=== PATIENT | female | born 1945 | race Caucasian/White ===

== ENCOUNTER 2021-09-16 09:40 | Day surgery (SDC) | payer OTHER ==
[~2021-09-16] VITALS: Ht 170.2 cm; Wt 91.2 kg
[2021-09-16] MEDS ORDERED: ARTICAINE HCL/EPINEPHRINE 4%/1:200,000 BIT 1.7 ML CARTRIDGE IJ ONE (13:03)
[2021-09-16] MEDS ORDERED: NS IRRIG SOLN 1000 ML IR ONE (13:03)
[2021-09-16] MEDS ORDERED: NS 250 ML BAG IV ONE (13:03)
[2021-09-16 13:43] VITALS: BP_SYST 97
== END 2021-09-16 13:25 | disposition home or self-care (01) ==
LOC: SDS 09:40 → SMU 09:42 → SDS 13:25
PROVIDERS: ATTEND Dentist General Practice
DX: M27.2 Inflammatory conditions of jaws (principal); K05.6 Periodontal disease, unspecified; I10 Essential (primary) hypertension; E78.5 Hyperlipidemia, unspecified; K21.9 Gastro-esophageal reflux disease without esophagitis; E03.9 Hypothyroidism, unspecified; I48.91 Unspecified atrial fibrillation; M79.2 Neuralgia and neuritis, unspecified; Z20.822 Contact with and (suspected) exposure to COVID-19
CPT/HCPCS: 21026; 21215; 21248; 36415; 41826; 70140; 87426; C1713 ×2; J7050

== ENCOUNTER 2021-11-26 07:14 | Day surgery (SDC) | payer OTHER ==
[~2021-11-26] VITALS: Ht 170.2 cm; Wt 91.2 kg
[2021-11-26 11:04] VITALS: BP_SYST 141
[2021-11-26] MEDS ORDERED: NS IRRIG SOLN 1000 ML IR ONE (12:00)
[2021-11-26] MEDS ORDERED: BENZOCAINE 20% GEL 32 GM BOTTLE MM ONE (12:00)
[2021-11-26] MEDS ORDERED: ARTICAINE HCL/EPINEPHRINE 4%/1:200,000 BIT 1.7 ML CARTRIDGE IJ ONE (12:00)
[2021-11-26] MEDS ORDERED: NS 100 ML BAG ONE (12:00)
== END 2021-11-26 10:05 | disposition home or self-care (01) ==
LOC: SDS 07:14 → SMU 07:21 → SDS 10:05
PROVIDERS: ATTEND Dentist General Practice
DX: M27.2 Inflammatory conditions of jaws (principal); K05.6 Periodontal disease, unspecified; M89.8X0 Other specified disorders of bone, multiple sites; M26.603 Bilateral temporomandibular joint disorder, unspecified; G47.33 Obstructive sleep apnea (adult) (pediatric); K05.222 Aggressive periodontitis, generalized, moderate; K08.421 Partial loss of teeth due to periodontal diseases, class I; I10 Essential (primary) hypertension; E78.5 Hyperlipidemia, unspecified; E03.9 Hypothyroidism, unspecified; K21.9 Gastro-esophageal reflux disease without esophagitis; I48.91 Unspecified atrial fibrillation; E66.9 Obesity, unspecified; I25.2 Old myocardial infarction; Z87.891 Personal history of nicotine dependence; Z90.49 Acquired absence of other specified parts of digestive tract; Z98.42 Cataract extraction status, left eye; Z98.41 Cataract extraction status, right eye; Z79.01 Long term (current) use of anticoagulants; Z79.899 Other long term (current) drug therapy; Z20.822 Contact with and (suspected) exposure to COVID-19
CPT/HCPCS: 21025; 21215; 21248; 36415; 70140; 87426; C1713

== ENCOUNTER 2022-01-21 08:20 | Outpatient (CLI) | payer OTHER ==
[~2022-01-21] VITALS: Ht 170.2 cm; Wt 95.3 kg
== END 2022-01-21 12:00 | disposition home or self-care (01) ==
LOC: SLB 08:20 → EDSTATUS 09:00 → SLB 12:00
PROVIDERS: ATTEND Dentist General Practice
DX: Z01.812 Encounter for preprocedural laboratory examination (principal); M27.2 Inflammatory conditions of jaws; Z20.822 Contact with and (suspected) exposure to COVID-19
CPT/HCPCS: 36415